=== PATIENT | male | born 1975 | race Caucasian/White ===

== ENCOUNTER 2018-10-13 17:45 | Emergency (ER) | payer BC, SELFPAY ==
[2018-10-13 17:53] VITALS: BP 157/88; PULSE 53; RESP 18; TEMP 36.5; O2SAT 100
--- NOTE | 2018-10-13 17:59 | DI.CT_ITS ---
SYMPTOM/DIAGNOSIS: RT FLANK PAIN, DYSURIA RENAL COLIC CT: The noncontrast enhanced examination was carried out according to the usual protocol. The liver is unremarkable. The gallbladder is normal. There is no ductal dilatation. The pancreas and spleen and adrenals are normal. Evaluation of the kidneys reveals no evidence of hydronephrosis or calcification. There may be subtle asymmetric right perinephric stranding as well as periureteral stranding with mild hydroureter. The left ureter is unremarkable. There is no evidence of a bowel abnormality. The appendix is normal. Evaluation of the bladder reveals a 3 mm calcification within the bladder. The bladder wall appears intact. The reproductive organs as visualized are unremarkable. There is no evidence of free air or free fluid in the intraperitoneal space. No acute bony abnormality seen. There is a very small fat containing right inguinal hernia. There is no evidence of an aortic aneurysm. There is no evidence of lymphadenopathy. SUMMARY: 1 3 mm stone is noted lying within the bladder and there are findings involving the right kidney and right ureter consistent with a recently passed right renal calculus.
[2018-10-13] MEDS: Normal Saline Flush 10 ML SYR IVP (18:00)
--- NOTE | 2018-10-13 18:05 | ED.GENADUL_ITS ---
Discharge Plan Disposition Patient Disposition: HOME Condition: Improving Discharge Details Chief Complaint: FlankPain Clinical Impression: Colic, ureteral Primary Care Provider: Michael Cifuentes ED Provider: Hood Jackson Home Meds and New Rx's Prescriptions: No Action No Known Home Meds RF: 0 Discharge Instructions Instructions: Abdominal Pain (ED) Additional Instructions: Home to rest this evening. Continue to push small, frequent sips of fluids to maintain hydration. You appear to have passed a 3 mm stone but may capture this in the urine by straining. Return if you develop a fever, recurrent discomfort or any other concerns Medical Decision Making 43-year-old male with a history of kidney stone 21 years ago. Presents with hours of colicky, severe right flank pain with associated dysuria and what he describes as dark urine. He is afebrile and in distress as I walk into the room. He is tender in the right lower quadrant in the right flank. Differential diagnosis is renal colic versus pyelonephritis, less likely a gallbladder attack or bowel obstruction. IV access established, patient given parenteral analgesia, fluids, referred for laboratory testing, urinalysis and CT images: There is a 3 mm stone within the dependent bladder with there is subtle asymmetric right perinephric stranding and periureteral stranding. No evidence of UTI and patient's pain has improved with fluids and parenteral medications. Discussed with him straining of the urine and follow-up with primary care if he stable to catch a stone. He understands return precautions Lab Data Lab results reviewed: Yes I reviewed the patient's lab results. Laboratory Results - last 24 hr 10/13/18 10/13/18 18:05 18:05 WBC 11.46 H RBC 4.45 L Hgb 14.4 Hct 41.4 MCV 93.0 MCH 32.4 MCHC 34.8 RDW 11.6 L Plt Count 362 MPV 10.2 Immature Gran % 0.2 Neutrophils % 81.5 Lymphocytes % 12.9 Monocytes % 4.7 Eosinophils % 0.4 Basophils % 0.3 Absolute Neutrophils 9.34 H Absolute Lymphocytes 1.48 Absolute Monocytes 0.54 Absolute Eosinophils 0.05 Absolute Basophils 0.03 Sodium 132 L Potassium 3.4 L Chloride 98 Carbon Dioxide 22.2 Anion Gap 11.8 H BUN 8 Creatinine 0.97 Estimated GFR/1.73 m2 >= 60.00 Glucose 111 H Calcium 9.1 Total Bilirubin 0.8 AST 32 ALT 41 Alkaline Phosphatase 69 Total Protein 7.3 Albumin 4.2 HPI General Mode of arrival: ambulatory . Date/Time Provider Initiated Documentation: 10/13/18 17:58 . Limitations to Documentation: no limitations . Information obtained by: patient . History of Present Illness 43 year old M presents to the emergency department with the chief complaint of Right flank pain, described as severe and similar to prior episodes, and is localized to the back and right. Patient abdomen. Patient started experiencing this hour(s) and it has been intermittent. No relieving factors improve symptom(s), No exacerbating factors reported . Patient notes loss of appetite and other (Urge to urinate); denies fever/chills. Patient did receive the following treatments prior to arrival, NSAID Related Data Home Medications Medication Instructions Recorded Confirmed Unknown [No Known Home Meds] 10/13/18 10/13/18 Allergies Allergy/AdvReac Type Severity Reaction Status Date / Time No Known Allergies Allergy Unverified 10/13/18 18:03 General Stated Complaint: FlankPain LISE: 3 Review of Systems Review of Systems 8 systems reviewed and otherwise negative. [facility] Medical History Kidney stone Surgical History HERNIA REPAIR Family History Father Diabetes Fatty liver Cirrhosis Mother No problems noted. Brother Glaucoma Grandfather Heart disease Grandfather No problems noted. Grandmother No problems noted. Grandmother No problems noted. Social History Smoking/Tobacco Use Status: Former Tobacco Use Drug use: Never Additional Social history: smoked at age [age] Exam Narrative Exam Narrative: GEN: awake, alert, oriented 3. Pleasant, well groomed, interactive. HEAD: Normocephalic, atraumatic ENT: Mucous membranes moist, oropharynx unremarkable, External ear exam unremarkable EYES: PERRL, EOMI NECK: Full ROM, no JEREMIAS, no menigismus CHEST/RESP: Nontender, clear to auscultation bilateral, no wheeze/rhonchi/rales CARDIOVASCULAR: RRR, no murmur, rub leeanne. 2+ Rad pulse bilateral ABDOMEN: Soft, tender in the right lower quadrant and right flank, no mass. +Bowel sounds EXT: Full ROM, no edema, no rash Neuro: Grossly normal neurologic exam, conversant, interactive. Psych: Speech fluent, thoughts congruent, affect anxious Course Vital Signs Temperature 36.5 C 10/13/18 17:53 Pulse 53 L 10/13/18 17:53 Respiratory Rate 18 10/13/18 17:53 Blood Pressure 157/88 H 10/13/18 17:53 Pulse Oximetry 100 10/13/18 17:53 Temperature 36.5 C 10/13/18 17:53 Temperature Source Skin 10/13/18 17:53 Pulse 53 L 10/13/18 17:53 Respiratory Rate 18 10/13/18 17:53 Blood Pressure 157/88 H 10/13/18 17:53 Blood Pressure Position Sitting 10/13/18 17:53 Pulse Oximetry 100 10/13/18 17:53 Oxygen Delivery Method Room Air 10/13/18 17:53 Oxygen Flow Rate 0 10/13/18 17:53 Pain Level 10 10/13/18 17:53
[2018-10-13] MEDS: Ketorolac 30 MG/ML VIAL IVP (18:10)
[2018-10-13] MEDS: Normal Saline 1,000 ML 150 ML IV (18:10)
[2018-10-13] MEDS: HYDROmorphone 2 MG/ML VIAL 0.5 MG IVP (18:11)
[2018-10-13 18:14] LABS: Abs Immature Grans 0.02 k/cumm (0.0-0.09); Absolute Eosinophil Count 0.05 k/cumm (0.0-0.7); Absolute Lymphocyte Count 1.48 k/cumm (1.2-3.4); Absolute Monocyte Count 0.54 k/cumm (0.11-0.7); Basophils % 0.3; Eosinophils % 0.4; HCT 41.4 % (40.0-50.0); HGB 14.4 g/dL (13.5-17.5); Immature Grans % 0.2; Lymphocytes % 12.9; Mean Corp. HGB Concentration 34.8 g/dL (32.0-36.0); Mean Corpuscular Hemoglobin 32.4 pg (27.0-33.0); Mean Platelet Volume 10.2 fL (8.0-11.0); Monocytes % 4.7; Neutrophils % 81.5; Platelet Count 362 x1000/uL (130-400); RBC 4.45 m/cumm (4.50-6.00); RBC Distribution Width 11.6 % (11.8-14.1); White Blood Cell Count 11.46 k/cumm (4.4-10.8)
[2018-10-13 18:15] LABS: Absolute Basophil Count 0.03 k/cumm (0.0-0.2); Absolute Neutrophil Count 9.34 k/cumm (1.2-6.7)
[2018-10-13 18:31] LABS: ALT 41 U/L (12-78); AST 32 U/L (15-37); Albumin 4.2 g/dL (3.4-5.0); Alkaline Phosphatase 69 U/L (46-116); Anion Gap 11.8 mmol/L (3-11); BUN 8 mg/dL (7-18); Bilirubin, Total 0.8 mg/dL (0.2-1.0); CO2 22.2 mmol/L (21.0-32.0); CREATININE 0.97 mg/dL (0.70-1.30); Calcium 9.1 mg/dL (8.5-10.1); Chloride 98 mmol/L (98-107); Glucose 111 mg/dL (70-100); Potassium 3.4 mmol/L (3.5-5.1); Sodium 132 mmol/L (136-145); Total Protein 7.3 g/dL (6.4-8.2)
--- NOTE | 2018-10-13 19:19 | DI.VRAD_ITS ---
EXAM: CT Abdomen and Pelvis Without Contrast EXAM DATE/TIME: 10/13/2018 6:00 PM CLINICAL HISTORY: 43 years old, male; Abdominal pain; Patient HX: Right flank pain TECHNIQUE: Imaging protocol: Axial computed tomography images of the abdomen and pelvis without contrast. Coronal and sagittal reformatted images were created and reviewed. COMPARISON: No relevant prior studies available. FINDINGS: Lungs: Lung bases are clear. ABDOMEN: Liver: Unremarkable. No mass. Gallbladder and bile ducts: Unremarkable. No calcified stones. No ductal dilation. Pancreas: Unremarkable. No ductal dilation. Spleen: Unremarkable. No splenomegaly. Adrenals: Unremarkable. No mass. Kidneys and ureters: No hydronephrosis or renal calcification. There is subtle asymmetric right perinephric stranding as well as periureteral stranding with mild hydroureter of the distal right ureter. Left ureter is normal in course and caliber. Stomach and bowel: Under distention of the colon mildly limits evaluation for mural thickening, no significant pericolonic inflammatory stranding. No obstruction. No mucosal thickening. Appendix: Within normal limits. PELVIS: Bladder: Within the dependent, midline bladder, discretely separate from the UVJ is is 3 mm calcification consistent with bladder stone. No focal abnormality of the bladder wall. Reproductive: Unremarkable as visualized. ABDOMEN and PELVIS: Intraperitoneal space: No free air. No significant fluid collection. Bones/joints: No acute fracture. No dislocation. Soft tissues: Mild fat in the right inguinal canal. Vasculature: Within normal limits. No abdominal aortic aneurysm. Lymph nodes: No pathologically enlarged lymph nodes. IMPRESSION: 3 mm stone within the dependent bladder with findings of the right kidney and ureter consistent with recently passed right ureteral stone. Dictated and Authenticated by: Roger Castro MD. Ordering:MATHEW Morataya MD
[2018-10-13 19:30] LABS: Bilirubin Negative (Negative); Blood Large (Negative); Clarity Cloudy; Glucose Negative (Negative); Ketones 40 mg/dL (Negative); Leukocyte Esterase Negative (Negative); Nitrite Negative (Negative); Specific Gravity >= 1.030 (1.005-1.025); Urobilinogen 0.2 EU/dL (Up TO 0.2); pH 5.5 (5-8)
[2018-10-13 19:41] LABS: Bacteria Few HPF (Negative); C & S Indicated? No; Casts Negative LPF (Negative); Crystals Negative HPF (Negative); Epithelial Cells Negative HPF (Negative); Mucus Negative (Negative); RBC >50 (0-2); WBC Negative HPF (0-5)
[2018-10-13 20:00] VITALS: BP 121/71; PULSE 55; RESP 16; TEMP 36.6; O2SAT 98
== END 2018-10-13 20:02 | disposition home or self-care (01) ==
PROVIDERS: Emergency Provider Emergency Medicine; PCP Family Medicine
DX: N23 Unspecified renal colic (principal); R30.0 Dysuria; Z87.440 Personal history of urinary (tract) infections
CPT/HCPCS: 36415; 80053; 96361; 96374; 96375; 99284; 74176; 81003; 81015; 85025; J1885

== ENCOUNTER 2024-03-12 23:15 | Emergency (ER) | payer BC, SELFPAY ==
[2024-03-12 23:17] VITALS: BP 171/90; PULSE 66; RESP 20; TEMP 36.2; O2SAT 99
--- NOTE | 2024-03-12 23:20 | ED.GENADUL_ITS ---
Discharge Plan Disposition Patient Disposition: Home Condition: Improving Discharge Details Clinical Impression: Kidney stone Primary Care Provider: Unknown,Unknown ED Provider: Emmanuel Templeton Home Meds and New Rx's Prescriptions: No Action No Known Home Meds Discharge Instructions Additional Instructions: You were seen in the ED for right flank pain and urinary symptoms. There is no evidence of urinary infection. On your CT scan tonight there is a recently passed kidney stone sitting in your bladder which you will pass on your own without problem. Continue to drink plenty fluids. Follow-up with your primary care next week. Return to ED for any new worsening pain, fever, vomiting, other concerns. HPI General Mode of arrival: ambulatory . Date/Time Provider Initiated Documentation: 03/12/24 23:17 . Limitations to Documentation: no limitations . Information obtained by: patient and RN notes reviewed . HPI Narrative: Patient presents to ED with complaint of right flank pain, urgency. Patient reports that he first noticed some right back pain a week ago. It comes and goes and has not been persistent. He has been drinking lots of fluids since he has a history of kidney stones. Since yesterday symptoms have been more persistent. He has begun to have pain into the groin and scrotum. Denies any swelling or redness. Tonight is having urgency and a constant sensation of needing to urinate which causes pain all the way down into his penis. He denies any fever. He denies any vomiting. He has not noticed any blood in his urine. He has been unable to sleep because of the pain tonight and presents to ED. Related Data Home Medications ?Medication ?Instructions ?Recorded ?Confirmed Unknown [No Known Home Meds] 10/13/18 03/12/24 Allergies Allergy/AdvReac Type Severity Reaction Status Date / Time No Known Allergies Allergy Unverified 03/12/24 23:21 General LISE: 3 Review of Systems Narrative: Per HPI Exam Narrative Exam Narrative: Const: WDWN male appears uncomfortable. VS per triage. HEENT: NC/AT. Normal facial exam. Neck: Supple. Trachea midline. Lungs: Normal respiratory effort. GI: Soft/ND/NT. Back: No CVAT. Neuro: A+O x 3. Normal speech, mentation, gait. Cranial nerves II - XII grossly intact. No gross motor or sensory deficit. Ext: No C/C/E. Medical Decision Making Patient presenting to ED with flank pain and urinary symptoms. He does have a history of kidney stones. He has no fever or vomiting. Symptoms most consistent with renal colic, less likely urinary infection. He appears quite uncomfortable but has not taken anything for pain. He has been drinking plenty of fluids. Symptoms have been intermittent since last week. IV established and baseline CBC and BMP obtained. Urinalysis sent. Ketorolac given for pain. Stone study ordered. 00:45 - Patient's urine with blood in it only, no evidence of infection. White count and kidney function are normal. CT scan per my read as well as preliminary radiology read with a stone in the bladder with some evidence of mild hydroureter suggesting a recently passed stone. On reevaluation patient reports feeling completely back to normal. Discussed findings. Will discharge home to follow-up with primary care next week. Return precautions provided. Imaging Data Radiologic Study: Imaging: CT Scan My impression: See [facility] Lab Data Lab results reviewed: Yes I reviewed the patient's lab results. Lab results narrative: See [facility] PFSH All Active Problems (Updated 03/13/24 @ 00:45 by Emmanuel Templeton MD) Kidney stone (Chronic) Medical History History of kidney stones (05/24/17) Surgical History HERNIA REPAIR 2010 Family History Father Diabetes Fatty liver Cirrhosis Mother No problems noted. Brother Glaucoma Grandfather Heart disease Grandfather No problems noted. Grandmother No problems noted. Grandmother No problems noted. Social History Smoking/Tobacco Use Status: Former Tobacco Use Smoking risk assessment performed?: Yes Alcohol Intake: current Alcohol Intake frequency: holidays/special occasions only Drug use: Rarely Substance use type: marijuana Details: edibles Additional Social history: smoked at age 17/17
[2024-03-12 23:28] LABS: Bilirubin Negative (Negative); Blood Large (Negative); Clarity Clear (Clear); Glucose Negative (Negative); Ketones Negative (Negative); Leukocyte Esterase Negative (Negative); Nitrite Negative (Negative)
--- NOTE | 2024-03-12 23:30 | DI.CT_ITS ---
Exam(s) CT RENAL COLIC WO EXAM: CT RENAL COLIC WO CLINICAL HISTORY: right flank pain. TECHNIQUE: Imaging Protocol: Axial computed tomography images with coronal and sagittal reformatted images were created and reviewed. COMPARISON: CT CT renal colic wo from 10/13/2018 FINDINGS: ABDOMEN: Lung Bases: There is a 4 mm nodule in the periphery of the right middle lobe. (Series 3, image 4). There is a 2 mm nodule in the posterolateral aspect of the right lower lobe (series 3, image 7). Liver: Normal density. No measurable mass. Gallbladder and biliary tract: No radiodense calculus or biliary ductal dilation. Pancreas: Normal density, no abnormal calcifications or inflammatory process. Spleen: Normal. Kidneys: Normal size, contour and axis.No radiodense stones or obstructive uropathy. No masses seen. Adrenal glands: No mass is seen. Lymph nodes: Within normal limits. Abdominal Aorta: Abdominal portion non-dilated. PELVIS: Bladder:Symmetric distention, no gross wall thickening. There is a 2 mm stone in the dependent portio n of the urinary bladder. Bowel: There are diverticula seen in the colon but no evidence of acute diverticulitis. There is no evidence of bowel obstruction or bowel wall thickening. Appendix is unremarkable. Peritoneal cavity: No ascites, collection or mesenteric inflammatory response. No free air. Reproductive organs: Unremarkable as visualized. Bones: Within normal limits. Soft Tissues: There is a small fat containing right inguinal hernia. IMPRESSION: 1. 2 mm stone in the dependent portion of the urinary bladder. This may represent a recently passed stone. 2. No evidence of hydronephrosis or nephrolithiasis. RADIATION DOSE DELIVERED: 606.4mGy.cm Total DLP DATA REPOSITORY: All CT scans at this facility are submitted to the National Radiology Data Registry (NRDR) Dose Index Registry (DIR) with the [employer] (A[employer]). RADIATION OPTIMIZATION: All CT scans at this facility use at least one of these dose optimization te chniques: automated exposure control; mA and/or kV adjustment per patient size (includes targeted exa ms where dose is matched to clinical indication); or iterative reconstruction.
[2024-03-12 23:36] LABS: Epithelial Cells Rare HPF (Negative); RBC >50 HPF (0-2); WBC 0-2 HPF (0-5)
[2024-03-12 23:37] LABS: Bacteria Rare HPF (Negative); C & S Indicated? No; Casts Negative LPF (Negative); Crystals Negative HPF (Negative); Mucus Negative (Negative)
[2024-03-12 23:43] LABS: Abs Immature Grans 0.04 10^3/uL (0.0-0.06); Absolute Basophil Count 0.08 10^3/uL (0.0-0.2); Absolute Eosinophil Count 0.35 10^3/uL (0.0-0.7); Absolute Lymphocyte Count 1.63 10^3/uL (1.2-3.4); Absolute Monocyte Count 0.66 10^3/uL (0.1-0.8); Absolute Neutrophil Count 7.09 10^3/uL (1.2-6.7); Basophils % 0.8 %; Eosinophils % 3.6 %; HCT 43.1 % (40.0-50.0); HGB 15.1 g/dL (13.5-17.5); Immature Grans % 0.4 %; Lymphocytes % 16.5 %; MCH 32.5 pg (27.0-33.0); MCV 93 fL (80-95); MPV 9.7 fL (8.0-11.0); Monocytes % 6.7 %; Platelet Count 342 10^3/uL (130-400); RBC 4.64 10^6/uL (4.36-5.78); RDW 11.5 % (11.8-14.1); RDW-SD 39.1 fL; WBC 9.85 10^3/uL (4.4-10.8)
[2024-03-12] MEDS: Ketorolac 15 MG/ML VIAL 30 MG IVP (23:51)
[2024-03-12 23:52] LABS: Anion Gap 8.2 mmol/L (3-11); BUN 15 mg/dL (7-18); CO2 27.8 mmol/L (21.0-32.0); Calcium 9.1 mg/dL (8.5-10.1); Chloride 105 mmol/L (98-107); Estimated GFR 93.42 (mL/min/1.73m2); Glucose 139 mg/dL (74-106); Sodium 141 mmol/L (136-145)
--- NOTE | 2024-03-13 00:39 | DI.VRAD_ITS ---
PROCEDURE INFORMATION: Exam: CT Abdomen And Pelvis Without Contrast Exam date and time: 03/12/2024 11:56 PM Age: 48 years old Clinical indication: Abdominal pain; Flank; Right; Additional info: Right flank pain TECHNIQUE: Imaging protocol: Computed tomography of the abdomen and pelvis without contrast. COMPARISON: CT renal colic wo 10/13/2018 6:28 PM FINDINGS: Lungs: Lung bases clear. Liver: Grossly unremarkable unenhanced liver. Gallbladder and biliary ducts: Gallbladder partially collapsed. No calcified gallstones seen. No biliary dilatation. Pancreas: Grossly unremarkable unenhanced pancreas. Spleen: Grossly unremarkable unenhanced spleen. Adrenal glands: Normal appearing adrenal glands. Kidneys and ureters: No radiopaque renal calculi or hydronephrosis. Mild asymmetric prominence of the right ureter with trace periureteral edema but no distally obstructing stone. Stomach and bowel: Stomach moderately distended with ingested material. No small bowel dilatation to suggest obstruction. Normal-appearing colon. No evidence of diverticulitis or colitis. Appendix: Normal appendix. Intraperitoneal space: No gross ascites or free air. Vasculature: Normal caliber abdominal aorta. Lymph nodes: No pathologically enlarged mesenteric, retroperitoneal, or pelvic sidewall lymph nodes. Urinary bladder: 3 mm stone in the posterior midline of the urinary bladder on image 354 of series 2. Reproductive: Normal-appearing prostate gland and seminal vesicles. Bones/joints: No acute fracture seen among the bones of the abdomen or pelvis. Soft tissues: Mild diastasis recti. No significant ventral or inguinal hernia. IMPRESSION: 3 mm stone in the posterior midline of the urinary bladder, probably recently passed from the right upper urinary tract. Clinical correlation recommended. Dictated and Authenticated by: Stefan Fierro MD. Ordering:CLEMENTE Benitez MD
== END 2024-03-13 00:53 | disposition home or self-care (01) ==
PROVIDERS: Emergency Provider Emergency Medicine
DX: N20.0 Calculus of kidney (principal)
CPT/HCPCS: 36415; 80048; 96372; 99284; 74176; 81003; 81015; 85025; J1885